=== PATIENT | male | born 1950 | race Caucasian/White ===

== ENCOUNTER 2020-06-03 16:31 | Inpatient (IN) | payer OTHER ==
[~2020-06-03] VITALS: Ht 180.3 cm; Wt 96.6 kg
[2020-06-03 16:36] VITALS: BP 144/90
[2020-06-03 17:17] LABS: ABSOLUTE LYMPHOCYTES 0.8 thou/uL (0.8-5.3); ABSOLUTE MONOCYTES 0.5 thou/uL (0.0-1.2); ABSOLUTE NEUTROPHILS 3.9 thou/uL (1.6-8.1); BASOPHILS 0.4 %; HEMATOCRIT 52.8 % (42.0-52.0); HEMOGLOBIN 18.6 gm/dL (14.0-18.0); LYMPHOCYTES 15.3 %; MCH 31.2 pg (26.0-34.0); MCHC 35.2 g/dL (28.0-37.0); MCV 88.6 fL (80.0-100.0); MPV 8.5 fl. (7.2-11.1); NUCLEATED RBCS 0 /100WBC; PLATELET COUNT* 130 thou/uL (150-400); POLYS 75.3 %; RBC 5.95 mil/uL (4.50-6.00); RDW-CV 13.5 % (10.5-14.5); WBC 5.1 thou/uL (4.0-11.0)
[2020-06-03 17:23] LABS: CALCIUM 8.1 mg/dL (8.5-10.1); CREATININE 1.5 mg/dL (0.6-1.3); POTASSIUM 3.8 mmol/L (3.5-5.1)
[2020-06-03 17:28] LABS: ALBUMIN 3.4 g/dL (3.4-5.0); TOTAL BILIRUBIN 0.7 mg/dL (<0.1-1.0)
[2020-06-03 18:34] LABS: URINE BLOOD NEGATIVE (Negative); URINE CLARITY CLEAR; URINE COLOR DARK YELLOW; URINE GLUCOSE-RANDOM 2+ (Negative); URINE KETONES TRACE (Negative); URINE LEUKOCYTES-REFLEX NEGATIVE (Negative); URINE NITRITE-REFLEX NEGATIVE (Negative); URINE PROTEIN 1+ (Negative); URINE SPECIFIC GRAVITY 1.025 (1.005-1.030)
[2020-06-03 18:38] LABS: ICTOTEST (BILI CONFIRMATORY) Negative (Negative); URINE BILIRUBIN 1+ (Negative)
[2020-06-03 20:07] VITALS: BP 131/71
[2020-06-03 20:27] VITALS: BP 114/74
[2020-06-04] VITALS: BP 107/66
[2020-06-04 04:00] VITALS: BP 141/84
[2020-06-04 04:33] LABS: ABSOLUTE LYMPHOCYTES 0.7 thou/uL (0.8-5.3); ABSOLUTE MONOCYTES 0.3 thou/uL (0.0-1.2); ABSOLUTE NEUTROPHILS 4.2 thou/uL (1.6-8.1); BASOPHILS 0.2 %; EOSINOPHILS 0.1 %; HEMATOCRIT 48.7 % (42.0-52.0); HEMOGLOBIN 16.8 gm/dL (14.0-18.0); LYMPHOCYTES 13.9 %; MCH 30.9 pg (26.0-34.0); MCHC 34.4 g/dL (28.0-37.0); MCV 89.7 fL (80.0-100.0); MONOCYTES 6.4 %; MPV 8.8 fl. (7.2-11.1); NUCLEATED RBCS 0 /100WBC; PLATELET COUNT* 127 thou/uL (150-400); POLYS 79.4 %; RBC 5.43 mil/uL (4.50-6.00); RDW-CV 13.2 % (10.5-14.5); WBC 5.2 thou/uL (4.0-11.0)
[2020-06-04 04:51] LABS: CALCIUM 7.6 mg/dL (8.5-10.1); CREATININE 1.3 mg/dL (0.6-1.3); POTASSIUM 3.8 mmol/L (3.5-5.1)
[2020-06-04 08:00] VITALS: BP 120/82
--- NOTE | 2020-06-04 11:11 | EKG ---
[place] [address] ELECTROCARDIOGRAM REPORT Name: XIAO HAMMOND Room: [address] ADM IN M.R.#: [id number] Admission: 06/03/20 Attend Phys: Geoff Melara, Discharge: Date of : 54 Date of Service: 06/03/20 1709 Report #: [id number] THIS REPORT FOR: //name// [facility] ED Test Date: 2020-06-03 Test Time: 17:09:50 Pat Name: XIAO HAMMOND Department: Room: [facility] Gender: M Monitoring Coordinator: ADRYAN : 1950 Requested By: Phuong Fair Order Number: [id number] MD: Dominic Lane Measurements Intervals [place] Rate: 100 P: 43 ME: 143 QRS: 14 QRSD: 80 T: 59 QT: 344 QTc: 444 Interpretive Statements Sinus tachycardia Abnormal R-wave progression, early transition Baseline wander in lead(s) II,III,aVF No previous ECG available for comparison Electronically Signed On 06-04-2020 11:11:[address] [email or web address] <ELECTRONICALLY SIGNED> By: Dominic Lane MD, FACC 06/04/[address] MD, FAC /EPI
[2020-06-04 12:00] VITALS: BP 131/87
[2020-06-04 16:00] VITALS: BP 119/82
[2020-06-04 19:30] VITALS: BP 140/80
[2020-06-05] VITALS: BP 105/70
[2020-06-05 04:00] VITALS: BP 119/83
[2020-06-05 05:00] LABS: ABSOLUTE MONOCYTES 0.4 thou/uL (0.0-1.2); ABSOLUTE NEUTROPHILS 6.8 thou/uL (1.6-8.1); BASOPHILS 0.2 %; HEMATOCRIT 46.3 % (42.0-52.0); HEMOGLOBIN 16.1 gm/dL (14.0-18.0); LYMPHOCYTES 12.4 %; MCHC 34.8 g/dL (28.0-37.0); NUCLEATED RBCS 0 /100WBC; PLATELET COUNT* 152 thou/uL (150-400); POLYS 82.4 %; RDW-CV 13.2 % (10.5-14.5); WBC 8.3 thou/uL (4.0-11.0)
[2020-06-05 08:00] VITALS: BP 132/80
[2020-06-05 12:00] VITALS: BP 133/71
[2020-06-05 16:00] VITALS: BP 130/74
[2020-06-05 20:10] VITALS: BP 114/64
[2020-06-06] VITALS (7 sets, daily range): BP systolic 118–133; BP diastolic 42–91
[2020-06-06 04:45] LABS: ABSOLUTE MONOCYTES 0.8 thou/uL (0.0-1.2); ABSOLUTE NEUTROPHILS 9.1 thou/uL (1.6-8.1); BASOPHILS 0.2 %; HEMATOCRIT 47.2 % (42.0-52.0); HEMOGLOBIN 16.5 gm/dL (14.0-18.0); LYMPHOCYTES 9.4 %; MCH 30.8 pg (26.0-34.0); MCV 88.2 fL (80.0-100.0); MONOCYTES 7.2 %; MPV 8.9 fl. (7.2-11.1); NUCLEATED RBCS 0 /100WBC; PLATELET COUNT* 187 thou/uL (150-400); POLYS 83.2 %; RBC 5.35 mil/uL (4.50-6.00); RDW-CV 13.6 % (10.5-14.5); WBC 10.9 thou/uL (4.0-11.0)
[2020-06-06 05:02] LABS: ALBUMIN 2.6 g/dL (3.4-5.0); CALCIUM 7.7 mg/dL (8.5-10.1); CREATININE 1.2 mg/dL (0.6-1.3); POTASSIUM 3.7 mmol/L (3.5-5.1); TOTAL BILIRUBIN 0.6 mg/dL (<0.1-1.0); TOTAL PROTEIN 6.5 g/dL (6.4-8.2)
[2020-06-06 10:07] LABS: PCO2 27.8 mmHg (35.0-45.0); pH 7.454 (7.340-7.450)
[2020-06-07] VITALS: BP 127/81
[2020-06-07 04:00] VITALS: BP 130/86
[2020-06-07 05:31] LABS: ABSOLUTE LYMPHOCYTES 0.7 thou/uL (0.8-5.3); ABSOLUTE MONOCYTES 0.8 thou/uL (0.0-1.2); ABSOLUTE NEUTROPHILS 7.5 thou/uL (1.6-8.1); BASOPHILS 0.2 %; HEMATOCRIT 49.5 % (42.0-52.0); HEMOGLOBIN 17.1 gm/dL (14.0-18.0); LYMPHOCYTES 8.1 %; MCH 30.8 pg (26.0-34.0); MCHC 34.6 g/dL (28.0-37.0); MONOCYTES 8.9 %; MPV 9.1 fl. (7.2-11.1); NUCLEATED RBCS 0 /100WBC; PLATELET COUNT* 232 thou/uL (150-400); POLYS 82.8 %; RBC 5.56 mil/uL (4.50-6.00); RDW-CV 13.2 % (10.5-14.5); WBC 9.1 thou/uL (4.0-11.0)
[2020-06-07 05:48] LABS: ALBUMIN 2.6 g/dL (3.4-5.0); CALCIUM 7.8 mg/dL (8.5-10.1); CREATININE 1.2 mg/dL (0.6-1.3); POTASSIUM 3.8 mmol/L (3.5-5.1); TOTAL BILIRUBIN 0.5 mg/dL (<0.1-1.0); TOTAL PROTEIN 6.7 g/dL (6.4-8.2)
[2020-06-07 06:34] LABS: PREALBUMIN 10.2 mg/dL (18.0-35.7)
[2020-06-07 08:00] VITALS: BP 124/73
[2020-06-07 12:00] VITALS: BP 116/77
[2020-06-07 16:00] VITALS: BP 142/95
[2020-06-07 22:02] VITALS: BP 127/79
[2020-06-08 02:06] LABS: GLYCOHEMOGLOBIN (HGB A1C) 7.6 % (4.8-5.6)
[2020-06-08 04:00] VITALS: BP 125/77
[2020-06-08 04:34] LABS: ABSOLUTE LYMPHOCYTES 0.9 thou/uL (0.8-5.3); ABSOLUTE MONOCYTES 1.3 thou/uL (0.0-1.2); BASOPHILS 0.2 %; HEMATOCRIT 47.8 % (42.0-52.0); HEMOGLOBIN 16.5 gm/dL (14.0-18.0); LYMPHOCYTES 7.9 %; MCH 30.4 pg (26.0-34.0); MCHC 34.5 g/dL (28.0-37.0); MCV 88.1 fL (80.0-100.0); MONOCYTES 11.8 %; MPV 8.6 fl. (7.2-11.1); NUCLEATED RBCS 0 /100WBC; PLATELET COUNT* 285 thou/uL (150-400); POLYS 80.1 %; RBC 5.43 mil/uL (4.50-6.00); RDW-CV 13.6 % (10.5-14.5); WBC 11.3 thou/uL (4.0-11.0)
[2020-06-08 04:53] LABS: ALBUMIN 2.6 g/dL (3.4-5.0); CALCIUM 8.3 mg/dL (8.5-10.1); CREATININE 1.1 mg/dL (0.6-1.3); POTASSIUM 3.7 mmol/L (3.5-5.1); TOTAL BILIRUBIN 0.4 mg/dL (<0.1-1.0); TOTAL PROTEIN 6.5 g/dL (6.4-8.2)
[2020-06-08 08:00] VITALS: BP 132/89
[2020-06-08 12:00] VITALS: BP 146/87
[2020-06-08 14:20] VITALS: BP 125/82
[2020-06-08 22:16] VITALS: BP 134/85
[2020-06-09] VITALS: BP 108/67
[2020-06-09 04:12] VITALS: BP 130/98
[2020-06-09 04:47] LABS: ABSOLUTE LYMPHOCYTES 0.8 thou/uL (0.8-5.3); ABSOLUTE MONOCYTES 0.9 thou/uL (0.0-1.2); ABSOLUTE NEUTROPHILS 9.3 thou/uL (1.6-8.1); BASOPHILS 0.3 %; HEMATOCRIT 50.1 % (42.0-52.0); HEMOGLOBIN 17.4 gm/dL (14.0-18.0); MCH 30.8 pg (26.0-34.0); MCHC 34.7 g/dL (28.0-37.0); MCV 88.9 fL (80.0-100.0); MONOCYTES 8.2 %; MPV 8.4 fl. (7.2-11.1); NUCLEATED RBCS 0 /100WBC; PLATELET COUNT* 296 thou/uL (150-400); POLYS 84.5 %; RBC 5.63 mil/uL (4.50-6.00); RDW-CV 13.6 % (10.5-14.5)
[2020-06-09 05:08] LABS: CALCIUM 8.7 mg/dL (8.5-10.1); CREATININE 1.4 mg/dL (0.6-1.3); POTASSIUM 3.8 mmol/L (3.5-5.1)
[2020-06-09 08:00] VITALS: BP 115/78
[2020-06-09 17:06] VITALS: BP 144/89
[2020-06-09 21:31] VITALS: BP 112/76
[2020-06-10] VITALS: BP 119/71
[2020-06-10 04:56] VITALS: BP 114/72
[2020-06-10 05:07] LABS: HEMATOCRIT 48.9 % (42.0-52.0); MCH 30.4 pg (26.0-34.0); MCHC 34.7 g/dL (28.0-37.0); MCV 87.8 fL (80.0-100.0); NUCLEATED RBCS 0 /100WBC; PLATELET COUNT* 321 thou/uL (150-400); RBC 5.58 mil/uL (4.50-6.00); RDW-CV 13.6 % (10.5-14.5); WBC 9.3 thou/uL (4.0-11.0)
[2020-06-10 05:18] LABS: ALBUMIN 2.6 g/dL (3.4-5.0); CALCIUM 7.9 mg/dL (8.5-10.1); CREATININE 1.2 mg/dL (0.6-1.3); POTASSIUM 4.1 mmol/L (3.5-5.1); TOTAL BILIRUBIN 0.5 mg/dL (<0.1-1.0); TOTAL PROTEIN 6.3 g/dL (6.4-8.2)
[2020-06-10 07:08] LABS: ABSOLUTE LYMPHOCYTES 1.1 thou/uL (0.8-5.3); ABSOLUTE MONOCYTES 0.4 thou/uL (0.0-1.2); ABSOLUTE NEUTROPHILS 7.8 thou/uL (1.6-8.1); ATYPICAL LYMPHS 3 %; PLATELET ESTIMATE ADEQUATE
[2020-06-10 08:00] VITALS: BP 107/67
[2020-06-10] MEDS ORDERED: HUMALOG100 UNIT/1 SUBQ (10:50)
[2020-06-10] MEDS ORDERED: DEXAMETHASONE 22 M1 PO (10:52)
[2020-06-10] MEDS ORDERED: PROTONIX40 M1 PO (10:52)
[2020-06-10] MEDS ORDERED: TESSALON PERLE100 MG PO (10:53)
[2020-06-10] MEDS ORDERED: PROAIR HFA8.5 GM INH (10:53)
[2020-06-10] MEDS ORDERED: CEFDINIR300 MG PO (10:54)
[2020-06-10 11:11] VITALS: BP 107/67
== END 2020-06-10 20:00 | disposition home health service (06) | DRG 177 ==
LOC: M.ERS 16:31 → M.TBA-ER 17:48 → M.2W 17:48
PROVIDERS: Physician Assistant; ADMIT Internal Medicine; ATTEND Internal Medicine
PROC: XW033E5 Introduction of Remdesivir Anti-infective into Peripheral Vein, Percutaneous Approach, New Technology Group 5 (ICD-10-PCS; principal; 2020-06-06)
PROC: XW033E5 Introduction of Remdesivir Anti-infective into Peripheral Vein, Percutaneous Approach, New Technology Group 5 (ICD-10-PCS; 2020-06-07)
DX: U07.1 COVID-19 (principal); J12.89 Other viral pneumonia; R65.11 Systemic inflammatory response syndrome (SIRS) of non-infectious origin with acute organ dysfunction; J96.01 Acute respiratory failure with hypoxia; N17.9 Acute kidney failure, unspecified; E87.1 Hypo-osmolality and hyponatremia; E11.9 Type 2 diabetes mellitus without complications